=== PATIENT | female | born 1955 | race Caucasian/White ===

== ENCOUNTER 2022-06-21 13:39 | Observation (INO) ==
[2022-06-21] MEDS ORDERED: SOLU-Medrol 125 MG VIAL ONE ×2 (13:57→18:53)
[2022-06-21] MEDS ORDERED: BENADRYL INJ 50 MG VIAL ONE ×2 (13:58→18:54)
[2022-06-21] MEDS ORDERED: NS 1,000 ML IV 1,000 ML ONE ×2 (13:58→18:54)
[2022-06-21] MEDS ORDERED: BENADRYL INJ 50 MG VIAL IVP ONE (14:13)
[2022-06-21] MEDS ORDERED: SOLU-Medrol 125 MG VIAL IVP ONE (14:13)
[2022-06-21] MEDS: NS 1,000 ML IV 1,000 ML IV ONE ×2 (14:15→18:59)
--- NOTE | 2022-06-21 14:18 | DR.DIZZY ---
HPI Time seen Time Seen by Provider: 06/21/22 14:18 COVID-19 Coronavirus risk:travel/contact w/high risk person: No Has patient experienced Coronavirus symptoms: No PMH Travel Risk Coronavirus risk:travel/contact w/high risk person: No Has patient experienced Coronavirus symptoms: No PE Vital Signs Vitals: Temperature 97.7 F Pulse Rate 85 Respiratory Rate 20 Blood Pressure 125/60 O2 Sat by Pulse Oximetry 96 ROR Labs Reviewed Result Diagrams: 06/23/22 06:03 06/23/22 06:03 Laboratory: 06/21/22 15:14 Urine,Clean Catch Urine Culture - Final Enterobacter Aerogenes Escherichia Coli WBC 11.1 X10^3/uL (3.6-10.0) H 06/21/22 14:00 RBC 4.73 X10^6/uL (3.5-5.4) 06/21/22 14:00 Hgb 13.1 g/dL (12.0-16.0) 06/21/22 14:00 Hct 39.6 % (36.0-47.0) 06/21/22 14:00 MCV 83.7 fL (80.0-100.0) 06/21/22 14:00 MCH 27.7 pg (27.0-34.0) 06/21/22 14:00 MCHC 33.1 g/dL (33.0-35.0) 06/21/22 14:00 RDW 15.3 % (11.6-16.5) 06/21/22 14:00 Plt Count 345 X10^3/uL (150.0-450.0) 06/21/22 14:00 MPV 8.5 fL (7.4-11.0) 06/21/22 14:00 Neut % (Auto) 68.2 % (42.0-75.0) 06/21/22 14:00 Lymph % (Auto) 23.4 % (21.0-51.0) 06/21/22 14:00 Mckinley % (Auto) 6.4 % (0.0-13.0) 06/21/22 14:00 Eos % (Auto) 1.5 % (0.9-2.9) 06/21/22 14:00 Baso % (Auto) 0.5 % (0.2-1.0) 06/21/22 14:00 Neut # (Auto) 7.6 x10^3/uL (2.2-4.8) H 06/21/22 14:00 Lymph # (Auto) 2.6 X10^3/uL (1.3-2.9) 06/21/22 14:00 Mckinley # (Auto) 0.7 x10^3/uL (0.3-0.8) 06/21/22 14:00 Eos # (Auto) 0.2 x10^3/uL (0.0-0.2) 06/21/22 14:00 Baso # (Auto) 0.1 X10^3/uL (0.0-0.1) 06/21/22 14:00 Absolute Nucleated RBC 0.2 /100WBC 06/21/22 14:00 Sodium 138 mmol/L (136-145) 06/21/22 14:00 Corrected Sodium TNP 06/21/22 14:00 Potassium 5.8 mmol/L (3.5-5.1) H 06/21/22 14:00 Chloride 105 mmol/L (98-107) 06/21/22 14:00 Carbon Dioxide 23.2 mmol/L (21-32) 06/21/22 14:00 BUN 19 mg/dL (7-18) H 06/21/22 14:00 Creatinine 1.02 mg/dL (0.55-1.02) 06/21/22 14:00 Est GFR (MDRD) Af Amer > 60 (>60) 06/21/22 14:00 Est GFR (MDRD) Non-Af 58 (>60) L 06/21/22 14:00 Glucose 58 mg/dL (65-99) L 06/21/22 14:00 Calcium 8.8 mg/dL (8.5-10.1) 06/21/22 14:00 Corrected Calcium TNP 06/21/22 14:00 Total Bilirubin 0.10 mg/dL (0.2-1.0) L 06/21/22 14:00 AST 16 Units/L (15-37) 06/21/22 14:00 ALT 16 Units/L (12-78) 06/21/22 14:00 Alkaline Phosphatase 102 Units/L (46-116) 06/21/22 14:00 Total Protein 7.0 g/dL (6.4-8.2) 06/21/22 14:00 Albumin 3.4 g/dL (3.4-5.0) 06/21/22 14:00 Globulin 3.6 g/dL (2.5-4.5) 06/21/22 14:00 Albumin/Globulin Ratio 0.9 Ratio (1.1-2.1) L 06/21/22 14:00 Specimen Type Clean catch urine 06/21/22 15:14 Urine Color Yellow (YELLOW) 06/21/22 15:14 Urine Appearance Cloudy (CLEAR) 06/21/22 15:14 Urine pH 6.0 (5.0 - 8.0) 06/21/22 15:14 Ur Specific [place] 1.020 (1.000-1.030) 06/21/22 15:14 Urine Protein 1+ (NEGATIVE) 06/21/22 15:14 Urine Glucose (UA) Negative (NEGATIVE) 06/21/22 15:14 Urine Ketones Negative (NEGATIVE) 06/21/22 15:14 Urine Blood 1+ (NEGATIVE) 06/21/22 15:14 Urine Nitrite Positive (NEGATIVE) 06/21/22 15:14 Urine Bilirubin Negative (NEGATIVE) 06/21/22 15:14 Urine Urobilinogen Normal (NORMAL) 06/21/22 15:14 Ur Leukocyte Esterase 3+ (NEGATIVE) 06/21/22 15:14 Urine RBC 20-30 /HPF (0-3) A 06/21/22 15:14 Urine WBC Tntc /HPF (0-5) A 06/21/22 15:14 Ur Squamous Epith Cells Few /HPF (NEGATIVE) 06/21/22 15:14 Urine Bacteria 2+ /HPF (NEGATIVE) 06/21/22 15:14 Ur Culture Indicated? Yes/culture set up 06/21/22 15:14 Opioid Opioid Risk Tool Age (Sj box if 16-45): No History of Preadolescent Sexual Abuse: No Total: 0 Total Score Risk Category: Low Risk Copyright: Simone MENDOZA predicting aberrant behaviors Discharge Plan Discharge Plan Patient Disposition: HOME, SELF-CARE Condition: Stable Orders to Discharge Patient Discharge Orders: Discharge (Routine); Ordered 06/23/22 Ordered By: Otf Verduzco
[2022-06-21 14:29] LABS: BASOPHILS # (AUTO) 0.1 X10^3/uL (0.0-0.1); BASOPHILS % (AUTO) 0.5 % (0.2-1.0); EOSINOPHILS # (AUTO) 0.2 x10^3/uL (0.0-0.2); EOSINOPHILS % (AUTO) 1.5 % (0.9-2.9); HEMATOCRIT 39.6 % (36.0-47.0); HEMOGLOBIN 13.1 g/dL (12.0-16.0); LYMPHOCYTES # (AUTO) 2.6 X10^3/uL (1.3-2.9); LYMPHOCYTES % (AUTO) 23.4 % (21.0-51.0); MEAN CORPUSCULAR HEMOGLOBIN 27.7 pg (27.0-34.0); MEAN CORPUSCULAR HGB CONC 33.1 g/dL (33.0-35.0); MEAN CORPUSCULAR VOLUME 83.7 fL (80.0-100.0); MEAN PLATELET VOLUME 8.5 fL (7.4-11.0); MONOCYTES # (AUTO) 0.7 x10^3/uL (0.3-0.8); MONOCYTES % (AUTO) 6.4 % (0.0-13.0); NEUTROPHILS # (AUTO) 7.6 x10^3/uL (2.2-4.8); NEUTROPHILS % (AUTO) 68.2 % (42.0-75.0); RED BLOOD COUNT 4.73 X10^6/uL (3.5-5.4); RED CELL DISTRIBUTION WIDTH 15.3 % (11.6-16.5); WHITE BLOOD COUNT 11.1 X10^3/uL (3.6-10.0)
[2022-06-21 14:35] LABS: BLOOD UREA NITROGEN 19 mg/dL (7-18); CHLORIDE 105 mmol/L (98-107); SODIUM 138 mmol/L (136-145)
[2022-06-21 15:11] LABS: ALANINE AMINOTRANSFERASE 16 Units/L (12-78); ALBUMIN 3.4 g/dL (3.4-5.0); ALKALINE PHOSPHATASE 102 Units/L (46-116); ASPARTATE AMINO TRANSFERASE 16 Units/L (15-37); CALCIUM 8.8 mg/dL (8.5-10.1); CARBON DIOXIDE 23.2 mmol/L (21-32); CREATININE 1.02 mg/dL (0.55-1.02); eGFR NON BLACK RACES 58 (>60)
[2022-06-21 15:28] LABS: BILIRUBIN,URINE NEGATIVE (NEGATIVE); BLOOD/HEMOGLOBIN,URINE 1+ (NEGATIVE); GLUCOSE, URINE NEGATIVE (NEGATIVE); KETONES,URINE NEGATIVE (NEGATIVE); LEUKOCYTE ESTERASE ,URINE 3+ (NEGATIVE); NITRITES,URINE POSITIVE (NEGATIVE); PROTEIN,URINE 1+ (NEGATIVE); UROBILINOGEN,URINE NORMAL (NORMAL)
[2022-06-21 15:36] LABS: APPEARANCE,URINE CLOUDY (CLEAR); COLOR,URINE YELLOW (YELLOW)
[2022-06-21 15:37] LABS: BACTERIA,URINE 2+ /HPF (NEGATIVE); RBC,URINE 20-30 /HPF (0-3); SQUAMOUS EPITHELIAL CELL,UR FEW /HPF (NEGATIVE)
[2022-06-21] MEDS ORDERED: ZOFRAN INJ 4 MG VIAL IVP ONE (15:42)
[2022-06-21] MEDS ORDERED: ZOFRAN INJ 4 MG VIAL ONE (15:44)
--- NOTE | 2022-06-21 16:25 | CT ---
HISTORYWeakness and dizzinessSTUDYCT brain without contrastCOMPARISONNoneTECHNIQUEMultiple axial images of the brain were obtained from the skull base to the vertex [without] administration of IV contrast.Dose reduction techniques including Automated Exposure Control (AEC) and adjustment of mA and kV were utlized.FINDINGS[No acute intraparenchymal hemorrhage or mass can be identified.] [No extra-axial fluid collections are seen.] [There is a small low-attenuation area in the right basal ganglia which is age indeterminate and could represent a subacute infarct. This would be better evaluated with MRI. Mild periventricular small vessel ischemic changes are noted.] [The ventricular system is symmetric and nondilated.] [The extracranial structures are grossly unremarkable.]IMPRESSIONSmall age indeterminate focus in the right basal ganglia as above. This could represent a subacute infarct and correlation with MRI would be of benefitElectronically signed by: DONTE YANEZ (Jun 21, 2022 16:24:03)
[2022-06-21] MEDS ORDERED: ROCEPHIN VIAL 1 GRAM ONE (19:51)
[2022-06-21] MEDS ORDERED: ROCEPHIN VIAL 1 GRAM 1 G in NS 100 ML IV 100 ML IV ONE (19:54)
--- NOTE | 2022-06-21 20:31 | EKG ---
Test Reason : DIZZINESS Blood Pressure : */* mmHG Vent. Rate : 86 BPM Atrial Rate : 86 BPM P-R Int : 198 ms QRS Dur : 98 ms QT Int : 382 ms P-R-T Axes : 79 55 36 degrees QTc Int : 457 ms Normal sinus rhythm Low voltage QRS Borderline ECG No previous ECGs available Confirmed by Dillan Franz ([id number]) on 06/23/2022 8:27:29 AM Referred By: Confirmed By: Dillan Franz
[2022-06-21 21:36] VITALS: BMI 31.5
[2022-06-21] MEDS: NS 1,000 ML IV 1,000 ML IV SCH (22:04)
[2022-06-22] MEDS: AMBIEN PO SCH ×2 (00:27→22:30)
[2022-06-22] MEDS: DESYREL PO SCH ×2 (00:27→21:55)
[2022-06-22] MEDS: ELAVIL PO SCH ×2 (00:27→21:50)
[2022-06-22] MEDS: LIPITOR TAB 80 MG PO SCH ×2 (00:27→22:29)
[2022-06-22] MEDS: SUBOXONE TAB SL SCH ×4 (00:41→22:33)
[2022-06-22 02:23] LABS: BASOPHILS # (AUTO) 0.1 X10^3/uL (0.0-0.1); BASOPHILS % (AUTO) 0.4 % (0.2-1.0); HEMATOCRIT 37.7 % (36.0-47.0); HEMOGLOBIN 12.3 g/dL (12.0-16.0); LYMPHOCYTES # (AUTO) 1.2 X10^3/uL (1.3-2.9); LYMPHOCYTES % (AUTO) 9.8 % (21.0-51.0); MEAN CORPUSCULAR HEMOGLOBIN 27.2 pg (27.0-34.0); MEAN CORPUSCULAR HGB CONC 32.8 g/dL (33.0-35.0); MEAN CORPUSCULAR VOLUME 82.9 fL (80.0-100.0); MEAN PLATELET VOLUME 8.7 fL (7.4-11.0); MONOCYTES # (AUTO) 0.1 x10^3/uL (0.3-0.8); MONOCYTES % (AUTO) 0.7 % (0.0-13.0); NEUTROPHILS # (AUTO) 11.2 x10^3/uL (2.2-4.8); NEUTROPHILS % (AUTO) 89.1 % (42.0-75.0); RED BLOOD COUNT 4.54 X10^6/uL (3.5-5.4); RED CELL DISTRIBUTION WIDTH 14.7 % (11.6-16.5); WHITE BLOOD COUNT 12.6 X10^3/uL (3.6-10.0)
[2022-06-22 02:28] LABS: INR 1.15 (0.8-1.3)
[2022-06-22 02:32] LABS: ALANINE AMINOTRANSFERASE 15 Units/L (12-78); ALBUMIN 2.9 g/dL (3.4-5.0); ALKALINE PHOSPHATASE 96 Units/L (46-116); ASPARTATE AMINO TRANSFERASE 13 Units/L (15-37); BLOOD UREA NITROGEN 17 mg/dL (7-18); CARBON DIOXIDE 23.3 mmol/L (21-32); CHLORIDE 106 mmol/L (98-107); COR CA(FOR HYPOALB) 8.9 mg/dL (8.5-10.1); COR NA(FOR HYPERGLY) 142 mmol/L (136-145); CREATININE 0.85 mg/dL (0.55-1.02); MAGNESIUM 1.1 mg/dL (2.0-2.9); SODIUM 136 mmol/L (136-145); eGFR NON BLACK RACES > 60 (>60)
[2022-06-22] MEDS ORDERED: K-DUR TAB 20 MEQ PO PRN (07:08)
[2022-06-22] MEDS ORDERED: GLUCOPHAGE ONE ×2 (08:13→20:25)
[2022-06-22] MEDS: GLUCOPHAGE PO SCH ×2 (08:57→22:39)
[2022-06-22] MEDS: WELLBUTRIN SR 150 MG (BID) PO SCH ×2 (08:57→22:39)
[2022-06-22] MEDS: NORVASC TAB 5 MG PO SCH (08:57)
[2022-06-22] MEDS: CYMBALTA PO SCH ×2 (08:57→22:29)
[2022-06-22] MEDS: PLAVIX PO SCH (08:57)
[2022-06-22] MEDS: DIOVAN TAB 160 MG PO SCH (08:57)
[2022-06-22] MEDS: ALDACTONE TAB 25 MG PO SCH (08:58)
[2022-06-22] MEDS: DITROPAN TAB 5 MG PO SCH ×2 (08:58→22:26)
[2022-06-22] MEDS: AMARYL TAB 4 MG PO SCH (08:58)
[2022-06-22] MEDS: ROCEPHIN VIAL 1 GRAM 1 G in NS 100 ML IV 100 ML IV SCH (09:00)
[2022-06-22] MEDS ORDERED: AMLODIPINE VALSARTAN PO SCH (09:00)
[2022-06-22] MEDS: LOVENOX INJ 40 MG SYR SC SCH (09:51)
[2022-06-22] MEDS: ZyPREXA TAB 5 MG PO SCH (09:52)
[2022-06-22] MEDS: MAGNESIUM SULFATE 1 GRAM/100 mL PREMIX 1 G/100 ML BAG IV PRN ×5 (09:52→22:25)
[2022-06-22] MEDS: TYLENOL 325 MG TAB PO PRN (10:52)
[2022-06-22 11:24] LABS: FREE T4 (FREE THYROXINE) 0.88 ng/dL (0.76-1.46); TSH (3RD GENERATION) 0.552 uIU/mL (0.358-3.74)
--- NOTE | 2022-06-22 14:12 | MRI ---
HISTORYweakness, falls, hx cvaSTUDYBRAIN W/O CONCOMPARISONHead CT dated 06/21/2022TECHNIQUEMultiplanar multi-sequence MRI of the brain was obtained utilizing standard departmental protocol. Sagittal and axial T1 weighted images were obtained. Axial T2 and flair weighted images were performed as well. Axial diffusion weighted and ADC trace mapping was performed.FINDINGSThe ventricles are normal in size and symmetric, no evidence of an acute infarct, no focal areas of restricted diffusion.No sellar masses with a empty sella, the cervicocranial junction is unremarkable, no nasopharyngeal masses.The main arterial and venous flow voids are present, no intra or extra-axial fluid collections, no orbital masses.FLAIR images demonstrate minimal periventricular white matter changes. There is symmetry of the cavernous sinus. No abnormal intraparenchymal susceptibility artifact. No abnormal signal in the mastoid cells.IMPRESSIONNo acute intracranial abnormalities. Mild periventricular white matter changes likely microvascular ischemic disease. Tiny mucous retention cyst in the right maxillary sinusElectronically signed by: Ranjana Shearer (Jun 22, 2022 14:11:35)
--- NOTE | 2022-06-22 16:25 | RAD ---
Right hand three viewsIndication: Pain after fallFINDINGSThere is minimal thumb base DJD. Irregularity of the distal radius suggests sequela of old fracture with radiocarpal DJD and possibly old ulnar fracture noted, healed.IMPRESSION:1. Mild degenerative change without acute fracture of the hand.2. Old radius and ulnar fractures likely. Correlate for pain here.Electronically signed by: LINDA NEAL (Jun 22, 2022 16:23:47)
[2022-06-22] MEDS ORDERED: SNACK - Diabetic Appropriate PO SCH (20:00)
[2022-06-22] MEDS: NS 1,000 ML IV 1,000 ML IV SCH ×2 (22:34→23:59)
[2022-06-23] MEDS: MAGNESIUM SULFATE 1 GRAM/100 mL PREMIX 1 G/100 ML BAG IV PRN (01:40)
[2022-06-23 06:19] LABS: BASOPHILS % (AUTO) 0.3 % (0.2-1.0); EOSINOPHILS # (AUTO) 0.1 x10^3/uL (0.0-0.2); HEMATOCRIT 37.8 % (36.0-47.0); HEMOGLOBIN 12.5 g/dL (12.0-16.0); LYMPHOCYTES # (AUTO) 3.1 X10^3/uL (1.3-2.9); LYMPHOCYTES % (AUTO) 25.9 % (21.0-51.0); MEAN CORPUSCULAR HEMOGLOBIN 27.3 pg (27.0-34.0); MEAN CORPUSCULAR VOLUME 82.7 fL (80.0-100.0); MEAN PLATELET VOLUME 8.4 fL (7.4-11.0); MONOCYTES # (AUTO) 0.6 x10^3/uL (0.3-0.8); MONOCYTES % (AUTO) 4.9 % (0.0-13.0); NEUTROPHILS # (AUTO) 8.2 x10^3/uL (2.2-4.8); NEUTROPHILS % (AUTO) 67.9 % (42.0-75.0); RED BLOOD COUNT 4.57 X10^6/uL (3.5-5.4); RED CELL DISTRIBUTION WIDTH 14.9 % (11.6-16.5)
[2022-06-23 06:30] LABS: ALANINE AMINOTRANSFERASE 18 Units/L (12-78); ALBUMIN 3.2 g/dL (3.4-5.0); ALKALINE PHOSPHATASE 102 Units/L (46-116); ASPARTATE AMINO TRANSFERASE 14 Units/L (15-37); BLOOD UREA NITROGEN 13 mg/dL (7-18); CALCIUM 8.3 mg/dL (8.5-10.1); CARBON DIOXIDE 26.5 mmol/L (21-32); CHLORIDE 106 mmol/L (98-107); COR CA(FOR HYPOALB) 8.9 mg/dL (8.5-10.1); COR NA(FOR HYPERGLY) 141 mmol/L (136-145); CREATININE 0.78 mg/dL (0.55-1.02); SODIUM 140 mmol/L (136-145); TOTAL PROTEIN 6.4 g/dL (6.4-8.2); eGFR NON BLACK RACES > 60 (>60)
[2022-06-23] MEDS ORDERED: GLUCOPHAGE ONE (08:33)
[2022-06-23] MEDS: DITROPAN TAB 5 MG PO SCH (08:40)
[2022-06-23] MEDS: GLUCOPHAGE PO SCH (08:40)
[2022-06-23] MEDS: AMARYL TAB 4 MG PO SCH (08:40)
[2022-06-23] MEDS: NORVASC TAB 5 MG PO SCH (08:40)
[2022-06-23] MEDS: DIOVAN TAB 160 MG PO SCH (08:41)
[2022-06-23] MEDS: ZyPREXA TAB 5 MG PO SCH (08:41)
[2022-06-23] MEDS: WELLBUTRIN SR 150 MG (BID) PO SCH (08:42)
[2022-06-23] MEDS: CYMBALTA PO SCH (08:42)
[2022-06-23] MEDS: PLAVIX PO SCH (08:43)
[2022-06-23] MEDS: ALDACTONE TAB 25 MG PO SCH (08:43)
[2022-06-23] MEDS: TYLENOL 325 MG TAB PO PRN (08:44)
[2022-06-23] MEDS: LOVENOX INJ 40 MG SYR SC SCH (08:45)
[2022-06-23] MEDS: ROCEPHIN VIAL 1 GRAM 1 G in NS 100 ML IV 100 ML IV SCH (08:46)
[2022-06-23] MEDS: SUBOXONE TAB SL SCH ×2 (09:01→12:57)
--- NOTE | 2022-06-23 11:56 | DR.H&P ---
H&P - History & Physical for Day of: H&P Date: 06/21/22 - Chief Complaint Chief Complaint: DIZZINESS, NAUSEA, WEAKNESS - History of Present Illness History of Present Illness: IS A 67 YEAR OLD PATIENT OF [employer]. SHE PRESENTED TO THE ER WITH COMPLAINTS OF DIZZINESS, NAUSEA, AND WEAKNESS TO UPPER AND LOWER EXTREMITIES. PATIENT REPORTS FEELINGS OF NUMBNESS TO EXTREMITIES. SHE REPORTS THAT SYMPTOMS STARTED 4-5 MONTHS AGO, BUT HAVE PROGRESSIVELY GOTTEN WORSE. SHE ADMITS TO FALLING AT HOME THE DAY PRIOR TO ARRIVAL. HER PMH INCLUDES DM II, HTN, CVA, DEPRESSION, ANXIETY, OPIOID DEPENDENCE, APPENDECTOMY, CHOLECYSTECTOMY, AND HYSTERECTOMY. PATIENT REPORTS THAT HER CVA WAS IN AUGUST OF 2021. SHE IS A CURRENT EVERY DAY SMOKER. SHE ADMITS TO SMOKING ABOUT A PACK OF CIGARETTES PER DAY. UPON EXAMINATION, PATIENT IS ABLE TO AMBULATE, BUT IS NOTED TO HAVE AN UNSTEADY GAIT. ON ARRIVAL TO THE ER, HER VITALS WERE: 97.7-18-83-95%-122/56. LABS WERE OBTAINED. WBC 11.1, RBC 4.73, HGB 13.1, HCT 39.6, PLT COUNT 345, SODIUM 138, POTASSIUM 5.8, CHLORIDE 105, BUN 19, CREATININE 1.02, GLUCOSE 58, CALCIUM 8.8, TOTAL BILI 0.10, AST 16, ALT 16, ALK PHOS 102, TOTAL PROTEIN 7.0, ALBUMIN 3.4, GLOBULIN 3.6, CREATININE 38, TROPONIN 5.7. A URINALYSIS WAS OBTAINED AND REVEALED: WBC TNTC, RBC 20-30, LEUKOCYTES 3+, BACTERIA 2+, NITIRITES POSITIVE. URINE CULTURE WAS SET UP. A BRAIN CT WAS OBTAINED AND REVEALED: Small age indeterminate focus in the right basal ganglia as above. This could represent a subacute infarct and correlation with MRI would be of benefit. EKG WAS OBTAINED AND REVEALED: NORMAL SINUS RHYTHM WITH HR 86. IN THE ER, SHE WAS GIVEN A NORMAL SALINE BOLUS, SOLU-MEDROL 125MG IV X 1, ZOFRAN 4MG IV X 1, ROCEPHIN 1G IV X 1. SHE WAS ADMITTED TO THE HOSPITAL OBSERVATION STATUS FOR TREATMENT OF UTI, GENERALIZED WEAKNESS, SUSPECTED ACUTE CVA, AND HYPERKALEMIA. WE WILL START NORMAL SALINE AT 50 ML/HR, LOVENOX 40MG SC DAILY, ROCEPHIN 1G IV DAILY, OTBS ACHS, HUMULIN R SLIDING SCALE, AND WILL RESUME HER HOME MEDICATIONS. HOME MEDS INCLUDE: ELAVIL, NORVASC, LIPITOR, SUBOXONE, WELLBUTRIN, PLAVIX, CYMBALTA, AMARYL, GLUCOPHAGE, ZYPREXA, DITROPAN, K-DUR, ALDACTONE, DESYREL, DIOVAN, AND AMBIEN. WE WILL OBTAIN A BRAIN MRI AND HAVE PHYS ICAL THERAPY EVALUATE PATIENT. OTHERWISE, WE WILL FOLLOW-UP WITH AM LABS AND CONTINUE TO MONITOR. TIME SPENT ON CLINICAL ASSESSMENT, REVIWING LABS AND IMAGING, DECISION MAKING, AND DOCUMENTATION GREATER THAN 75 MINUTES. - Past Medical History Past Medical History: Anxiety, CVA, Depression, Diabetes, Hypertension Additional Medical History: MOOD DISORDER, OPIOID DEPNENCENCE - Past Surgical History Surgical History: Appendectomy, Cholecystectomy, Hysterectomy - Family History Family Medical History: Diabetes Mellitus, PR - Social History Does patient currently use any type of tobacco product: Yes Have you used tobacco products in the last 12 months: Yes Type of Tobacco Use: Cigarettes How many years tobacco product used: 25 Does any household member use tobacco: Yes Alcohol Use: None Drug Use: None - Medications Home Medications: No Known Allergies Allergy (Verified 06/21/22 14:38) CONTINUE taking the following medications amitriptyline 75 mg tablet 2 tab PO QPM 06/21/22 [History] amlodipine 5 mg-valsartan 320 mg tablet 1 tab PO QDAY 06/21/22 [History] atorvastatin 80 mg tablet 1 tab PO QPM 06/21/22 [History] buprenorphine 8 mg-naloxone 2 mg sublingual tablet 1 tab sublingual QID 06/21/22 [History] bupropion HCl 150 mg tablet,12 hr sustained-release 1 tab PO BID 06/21/22 [History] clopidogrel 75 mg tablet 1 tab PO QDAY 06/21/22 [History] duloxetine 60 mg capsule,delayed release 1 cap PO BID 06/21/22 [History] glimepiride 4 mg tablet 1 tab PO QDAY 06/21/22 [History] metformin 1,000 mg tablet 1 tab PO BID 06/21/22 [History] olanzapine 15 mg tablet 1 tab PO QDAY 06/21/22 [History] oxybutynin chloride 5 mg tablet 1 tab PO BID 06/21/22 [History] semaglutide 1 mg/dose (4 mg/3 mL) subcutaneous pen injector (Ozempic) 1 ea subcut WEEKLY 06/21/22 [History] spironolactone 50 mg tablet 1 tab PO QDAY 06/21/22 [History] trazodone 100 mg tablet 1 tab PO QPM insomnia 06/21/22 [History] zolpidem 5 mg tablet 1 tab PO QPM 06/21/22 [History] New Prescriptions ciprofloxacin HCl 500 mg tablet (Cipro) 500 mg PO BID #20 tabs 06/23/22 [Rx] - Review of Systems Constitutional: Weakness Eyes: No Symptoms Reported ENT: No Symptoms Reported Respiratory: No Symptoms Reported Cardiovascular: No Symptoms Reported Gastrointestinal: Nausea Genitourinary: No Symptoms Reported Musculoskeletal: No Symptoms Reported Skin: No Symptoms Reported Neurological: Weakness - Physical Exam Vital Signs: Temperature 97.9 F Pulse Rate [Brachial] 87 Pulse Rate 85 Respiratory Rate 16 Blood Pressure [Left Arm] 121/63 Blood Pressure [Right Arm] 138/96 Blood Pressure 125/60 O2 Sat by Pulse Oximetry 98 Oriented: Normal Eyes: Normal Ear: Normal Nose: Normal Throat: Normal Respiratory: Clear Throughout Cardiovascular: Normal : Normal Auscultation: Bowel Sounds: Normal Palpation: Normal Tenderness: Normal Skin: Normal Musculoskeletal: Normal Psychiatric: Normal Mood Description: Calm Affect: Normal Speech Pattern: Clear - Assessment/Plan (1) Urinary tract infection Qualifiers: Urinary tract infection type: acute cystitis Hematuria presence: with hematuria Qualified Code(s): N30.01 - Acute cystitis with hematuria Status: Acute Plan: ADMIT, NORMAL SALINE AT 50 ML/HR, LOVENOX 40MG SC DAILY, ROCEPHIN 1G IV DAILY, OTBS ACHS, HUMULIN R SLIDING SCALE, AND WILL RESUME HER HOME MEDICATIONS. PT/OT. OBTAIN BRAIN MRI WITHOUT CONTRAST (2) Generalized weakness Status: Acute (3) Hyperkalemia Status: Acute (4) History of CVA (cerebrovascular accident) Status: Chronic (5) HTN (hypertension) Qualifiers: Hypertension type: primary hypertension Qualified Code(s): I10 - Essential (primary) hypertension Status: Chronic (6) DM II (diabetes mellitus, type II), controlled Qualifiers: Diabetes mellitus nursing home insulin use: with local intermodal truck driver use Diabetes mellitus complication status: with hyperglycemia Qualified Code(s): E11.65 - Type 2 diabetes mellitus with hyperglycemia; Z79.4 - USP (current) use of insulin Status: Chronic (7) Depression Qualifiers: Depression Type: major depressive disorder Major depression recurrence: recurrent Active/Remission status: remission status unspecified Qualified Code(s): F33.9 - Major depressive disorder, recurrent, unspecified Status: Chronic (8) Anxiety Status: Chronic - Allergies Allergies/Adverse Reactions: Allergies Allergy/AdvReac Type Severity Reaction Status Date / Time No Known Allergies Allergy Verified 06/21/22 14:38
[2022-06-23 12:09] VITALS: BP 118/62
[2022-06-23] MEDS: NS 1,000 ML IV 1,000 ML IV SCH (12:57)
[2022-06-28] MEDS ORDERED: PATIENT'S HOME MEDICATION (Semaglutide [Ozempic] 1 mg/dose (4 mg/3 mL) pen injector) SUBCUT SCH (09:00)
== END 2022-06-23 14:37 | disposition home or self-care (01) ==
LOC: ER 13:39 → MED/SURG 13:39
PROVIDERS: ADMIT Internal Medicine; ATTEND Internal Medicine
DX: Z91.81 History of falling; R26.81 Unsteadiness on feet; M79.641 Pain in right hand; Y92.230 Patient room in hospital as the place of occurrence of the external cause; W18.39XA Other fall on same level, initial encounter; E11.65 Type 2 diabetes mellitus with hyperglycemia; F33.9 Major depressive disorder, recurrent, unspecified; R20.0 Anesthesia of skin; Z86.73 Personal history of transient ischemic attack (TIA), and cerebral infarction without residual deficits; Z79.4 Long term (current) use of insulin; N30.01 Acute cystitis with hematuria; B96.89 Other specified bacterial agents as the cause of diseases classified elsewhere; E87.5 Hyperkalemia; B96.29 Other Escherichia coli [E. coli] as the cause of diseases classified elsewhere; R53.1 Weakness; I10 Essential (primary) hypertension; R42 Dizziness and giddiness; Z72.0 Tobacco use; F41.8 Other specified anxiety disorders

== ENCOUNTER 2023-02-06 14:40 | Observation (INO) ==
[2023-02-06 14:49] VITALS: BMI 25.4
--- NOTE | 2023-02-06 15:06 | EKG ---
Test Reason : Chest pain Blood Pressure : */* mmHG Vent. Rate : 75 BPM Atrial Rate : 75 BPM P-R Int : 144 ms QRS Dur : 80 ms QT Int : 408 ms P-R-T Axes : 80 68 67 degrees QTc Int : 455 ms Normal sinus rhythm Normal ECG When compared with ECG of 21-JUN-2022 20:29, QRS duration has decreased Confirmed by Dillan Franz ([id number]) on 02/08/2023 7:29:27 AM Referred By: Confirmed By: Dillan Franz
[2023-02-06] MEDS ORDERED: APRESOLINE INJ 20 MG VIAL IVP ONE ×2 (15:11→20:22)
--- NOTE | 2023-02-06 15:13 | DR.GENAD ---
HPI Time Seen Time Seen by Provider: 02/06/23 15:10 PCP Primary Care Physician: EMERALD BEATTY Complaint/Symptoms Chief Complaint Doctors Comments: HEADACHE WITH LEFT SIDE CHEST PAIN AND INCREASED LEFT SIDE WEAKNESS OVER PAST 3 DAYS. PRESENTED WITH ELEVATED BP BUT DID NOT TAKE AM MEDS TODAY. Chief Complaint:: Pt states for the past 2-3 days shes been weak, and having headaches with weakness more on the left side. Also chest has been hurting. Self Treatment fo Chief Complaint: N/A COVID-19 Coronavirus risk:travel/contact w/high risk person: No Has patient experienced Coronavirus symptoms: No Source History Provided: Patient Mode of Arrival Mode of Arrival: Ambulatory Timing Onset of Chief Complaint: 02/04/23 PMH PMH Past Medical History: Yes Past Medical History: CVA, Diabetes and Hypertension Past Medical History Comment: HEART ATTACK, STROKE 2021 Past Surgical History: Yes Surgical History: Appendectomy and Hysterectomy Past Surgical History Comment: GALLBLADDER Family History History of Family Medical Conditions: Yes Family Medical History: Diabetes Mellitus and Hypertension Social History Does patient currently use any type of tobacco product: Yes Have you used tobacco products in the last 12 months: Yes Type of Tobacco Use: Cigarettes How many years tobacco product used: 20 Does any household member use tobacco: No Alcohol Use: None Do you use any recreational Drugs:: No Lives With: Spouse Lives Where: Home Travel Risk Coronavirus risk:travel/contact w/high risk person: No Has patient experienced Coronavirus symptoms: No Infectious screening Have you traveled outside the country in the last 6 months?: No Isolation: Standard ROS Review of Systems Constitutional: Other (LEDT CHEST AND NECK PAIN ,HEADACHE) Eyes: No Symptoms Reported ENTM: No Symptoms Reported Respiratoy: negative No Symptoms Reported, See HPI, Productive Cough, Non- Productive Cough, Moist Cough, Dry Cough, Hacking Cough, Barking Cough, Brassy Cough, Orthopnea, Short of Breath, Stridor, Wheezing, Hemoptysis or Other Cardiovascular: Chest Pain Gastrointestinal/Abdominal: No Symptoms Reported Genitourinary: No Symptoms Reported Neurological: No Symptoms Reported Musculoskeletal: No Symptoms Reported Integumentary: No Symptoms Reported Hematologic/Lymphatic: No Symptoms Reported Endocrine: No Symptoms Reported Psychiatric: No Symptoms Reported PE Vital Signs Vitals: Vital Signs Pulse Rate 92 Pulse Rate 90 Pulse Rate 81 Pulse Rate 79 Pulse Rate 82 Pulse Rate 79 Pulse Rate 82 Pulse Rate 79 Pulse Rate 79 Pulse Rate 81 Pulse Rate 81 Pulse Rate 83 Pulse Rate 80 Pulse Rate 80 Pulse Rate 79 Pulse Rate 79 Pulse Rate 79 Pulse Rate 81 Pulse Rate 90 Pulse Rate 79 Pulse Rate 79 Pulse Rate 82 Pulse Rate 80 Pulse Rate 80 Pulse Rate 82 Pulse Rate 79 Pulse Rate 90 Pulse Rate 78 Pulse Rate 82 Pulse Rate 85 Pulse Rate 75 Pulse Rate 74 Pulse Rate 81 Pulse Rate 74 Pulse Rate 75 Pulse Rate 78 Pulse Rate 73 Pulse Rate 72 Pulse Rate 75 Pulse Rate 75 Pulse Rate 73 Respiratory Rate 14 Respiratory Rate 17 Respiratory Rate 13 Respiratory Rate 13 Respiratory Rate 12 Respiratory Rate 15 Respiratory Rate 15 Respiratory Rate 13 Respiratory Rate 17 Respiratory Rate 20 Respiratory Rate 23 Respiratory Rate 16 Respiratory Rate 37 Respiratory Rate 17 Respiratory Rate 15 Respiratory Rate 21 Respiratory Rate 15 Respiratory Rate 8 Respiratory Rate 14 Respiratory Rate 21 Respiratory Rate 17 Respiratory Rate 20 Respiratory Rate 24 Respiratory Rate 22 Respiratory Rate 20 Respiratory Rate 18 Respiratory Rate 22 Respiratory Rate 8 Respiratory Rate 20 Respiratory Rate 9 Respiratory Rate 10 Respiratory Rate 22 Respiratory Rate 18 Respiratory Rate 20 Respiratory Rate 9 Respiratory Rate 12 Respiratory Rate 9 Respiratory Rate 16 Respiratory Rate 17 Respiratory Rate 18 Respiratory Rate 10 Respiratory Rate 18 Respiratory Rate 24 Respiratory Rate 25 Blood Pressure 154/73 Blood Pressure 143/67 Blood Pressure 142/64 Blood Pressure 152/71 Blood Pressure 139/64 Blood Pressure 151/69 Blood Pressure 144/59 Blood Pressure 144/59 Blood Pressure 144/59 Blood Pressure 162/72 Blood Pressure 162/72 Blood Pressure 162/72 Blood Pressure 174/74 Blood Pressure 209/94 Blood Pressure 173/64 Blood Pressure 197/88 Blood Pressure 186/81 Blood Pressure 214/86 Blood Pressure 174/76 Blood Pressure 161/70 Blood Pressure 160/70 Blood Pressure 166/74 O2 Sat by Pulse Oximetry 99 O2 Sat by Pulse Oximetry 98 O2 Sat by Pulse Oximetry 98 O2 Sat by Pulse Oximetry 98 O2 Sat by Pulse Oximetry 98 O2 Sat by Pulse Oximetry 98 O2 Sat by Pulse Oximetry 98 O2 Sat by Pulse Oximetry 98 O2 Sat by Pulse Oximetry 99 O2 Sat by Pulse Oximetry 98 O2 Sat by Pulse Oximetry 98 O2 Sat by Pulse Oximetry 99 O2 Sat by Pulse Oximetry 100 O2 Sat by Pulse Oximetry 97 O2 Sat by Pulse Oximetry 98 O2 Sat by Pulse Oximetry 99 O2 Sat by Pulse Oximetry 99 O2 Sat by Pulse Oximetry 99 O2 Sat by Pulse Oximetry 98 O2 Sat by Pulse Oximetry 99 O2 Sat by Pulse Oximetry 99 O2 Sat by Pulse Oximetry 100 O2 Sat by Pulse Oximetry 99 O2 Sat by Pulse Oximetry 99 O2 Sat by Pulse Oximetry 99 O2 Sat by Pulse Oximetry 99 O2 Sat by Pulse Oximetry 98 O2 Sat by Pulse Oximetry 98 O2 Sat by Pulse Oximetry 100 O2 Sat by Pulse Oximetry 99 O2 Sat by Pulse Oximetry 100 O2 Sat by Pulse Oximetry 100 O2 Sat by Pulse Oximetry 98 O2 Sat by Pulse Oximetry 99 O2 Sat by Pulse Oximetry 99 O2 Sat by Pulse Oximetry 99 O2 Sat by Pulse Oximetry 99 General Limitations: Physical Limitation (MINIMAL LIMITATIONS) General Appearance: In Distress (MODERATE DISTRESS) Head Head Exam: Normal Inspection, Atraumatic and Normocephalic Eyes Eye exam: Normal Appearance and PERRL ENT ENT Exam: Normal Exam, Normal Oropharynx and Normal External Ear Exam External Ear Exam: Normal External Inspection TM/Canal Exam: Bilateral: Normal Nose Exam: Normal Nose Exam Mouth Exam: Normal Inspection Neck Neck Exam: Normal Inspection, Full ROM and Trachea Midline Chest Chest Inspection: Normal Inspection and Symmetric Chest Wall Rise Respiratory Respiratory Exam: Normal Lung Sounds Bilat Respiratory Exam: Bilateral: Clear to Auscultation Cardiovascular Cardiovascular Exam: Regular Rate and Normal Rhythm Abdominal Exam Abdominal Exam: Normal Inspection and Normal Bowel Sounds Extremities Extremities Exam: Normal Inspection and Full ROM Back Back Exam: Normal Inspection and Full ROM Neurologic Neurological Exam: Alert, Oriented X3 and CN II-XII Intact Psychiatric Psychiatric Exam: Normal Affect MDM Differential Diagnosis Differential Diagnosis: AMI,CVA,HEADACHE ,PE,HYPERTENSIVE URGENCY COURSE Treatment Treatment: PATIENT REMAINED RELATIVELY STABLE DURING ER EVALUATION. WAS GIVN A TOTAL OF 4MG OF MSO4 IV FOR HEADACHE AND 4MG OD ZOFRAN IV . WAS GIVEN A TOTAL OF 20MG OF HYDRALAZINE IV FOR ELEVATED BLOOD PRESSUR. HAD 2 SETS OF CARDIAC ENZYMES THAT WERE NORMAL. PATIENT HAC CT OF BRAIN THAT WAS NEGATIVE FOR ACUTE BLEED AND CTA OF CHEST BECAUSE OF ELEVATED D-DIMER THAT WAS NEGATIVVE FOR PE. SPOKE TO DR FELDMAN ABOUT THIS PATIENT AND SHE STATED TO GET THE 2ND SET OF CARDIAC ENZYMES AND IF THEY ARE NOT ELEVATED WILL ACCEPT TO OBSERVATION. THE 2ND SET WERE NOT ELEVATED AND THE PATIENT WAS ADMITTED TO OBSERVATION. THE PATIENT WAS INFORMED OF THE INTENT TO ADMIT AND WAS AGREABLE TO THE OBSERVATION. ROR Labs Reviewed Laboratory Results Reviewed?: Yes 02/06/23 15:18 02/06/23 15:18 Laboratory: WBC 8.3 X10^3/uL (3.6-10.0) 02/06/23 15:18 RBC 4.17 X10^6/uL (3.5-5.4) 02/06/23 15:18 Hgb 10.3 g/dL (12.0-16.0) L 02/06/23 15:18 Hct 31.7 % (36.0-47.0) L 02/06/23 15:18 MCV 76.1 fL (80.0-100.0) L 02/06/23 15:18 MCH 24.7 pg (27.0-34.0) L 02/06/23 15:18 MCHC 32.4 g/dL (33.0-35.0) L 02/06/23 15:18 RDW 18.1 % (11.6-16.5) H 02/06/23 15:18 Plt Count 477 X10^3/uL (150.0-450.0) H 02/06/23 15:18 MPV 7.3 fL (7.4-11.0) L 02/06/23 15:18 Neut % (Auto) 68.1 % (42.0-75.0) 02/06/23 15:18 Lymph % (Auto) 25.7 % (21.0-51.0) 02/06/23 15:18 Arroyo % (Auto) 5.2 % (0.0-13.0) 02/06/23 15:18 Eos % (Auto) 0.5 % (0.9-2.9) L 02/06/23 15:18 Baso % (Auto) 0.5 % (0.2-1.0) 02/06/23 15:18 Neut # (Auto) 5.7 x10^3/uL (2.2-4.8) H 02/06/23 15:18 Lymph # (Auto) 2.1 X10^3/uL (1.3-2.9) 02/06/23 15:18 Arroyo # (Auto) 0.4 x10^3/uL (0.3-0.8) 02/06/23 15:18 Eos # (Auto) 0.0 x10^3/uL (0.0-0.2) 02/06/23 15:18 Baso # (Auto) 0.0 X10^3/uL (0.0-0.1) 02/06/23 15:18 Absolute Nucleated RBC 0.2 /100WBC 02/06/23 15:18 D-Dimer 1.91 ug/ml (0.0-0.57) H 02/06/23 15:18 Sodium 138 mmol/L (136-145) 02/06/23 15:18 Corrected Sodium 140 mmol/L (136-145) 02/06/23 15:18 Potassium 3.7 mmol/L (3.5-5.1) 02/06/23 15:18 Chloride 101 mmol/L (98-107) 02/06/23 15:18 Carbon Dioxide 30.9 mmol/L (21-32) 02/06/23 15:18 BUN 10 mg/dL (7-18) 02/06/23 15:18 Creatinine 0.88 mg/dL (0.55-1.02) 02/06/23 15:18 Est GFR (MDRD) Af Amer > 60 (>60) 02/06/23 15:18 Est GFR (MDRD) Non-Af > 60 (>60) 02/06/23 15:18 Glucose 183 mg/dL (65-99) H 02/06/23 15:18 POC Glucose (mg/dL) 174 mg/dL (65-99) H 02/06/23 15:40 Calcium 8.2 mg/dL (8.5-10.1) L 02/06/23 15:18 Corrected Calcium 9.3 mg/dL (8.5-10.1) 02/06/23 15:18 Total Bilirubin 0.20 mg/dL (0.2-1.0) 02/06/23 15:18 AST 21 Units/L (15-37) 02/06/23 15:18 ALT 37 Units/L (12-78) 02/06/23 15:18 Alkaline Phosphatase 417 Units/L (46-116) H 02/06/23 15:18 Creatine Kinase 107 Units/L (26-192) 02/06/23 20:15 Troponin I High Sens 10.5 ng/L (4.0-60.0) 02/06/23 20:15 B-Natriuretic Peptide 123 pg/mL (0-79) H 02/06/23 15:18 Total Protein 6.5 g/dL (6.4-8.2) 02/06/23 15:18 Albumin 2.6 g/dL (3.4-5.0) L 02/06/23 15:18 Globulin 3.9 g/dL (2.5-4.5) 02/06/23 15:18 Albumin/Globulin Ratio 0.7 Ratio (1.1-2.1) L 02/06/23 15:18 Specimen Type Clean catch urine 02/06/23 20:41 Urine Color Yellow (YELLOW) 02/06/23 20:41 Urine Appearance Clear (CLEAR) 02/06/23 20:41 Urine pH 8.0 (5.0 - 8.0) 02/06/23 20:41 Ur Specific Fleming 1.010 (1.000-1.030) 02/06/23 20:41 Urine Protein 1+ (NEGATIVE) 02/06/23 20:41 Urine Glucose (UA) Negative (NEGATIVE) 02/06/23 20:41 Urine Ketones Negative (NEGATIVE) 02/06/23 20:41 Urine Blood Negative (NEGATIVE) 02/06/23 20:41 Urine Nitrite Negative (NEGATIVE) 02/06/23 20:41 Urine Bilirubin Negative (NEGATIVE) 02/06/23 20:41 Urine Urobilinogen Normal (NORMAL) 02/06/23 20:41 Ur Leukocyte Esterase Negative (NEGATIVE) 02/06/23 20:41 Urine RBC 0-2 /HPF (0-3) 02/06/23 20:41 Urine WBC 0-2 /HPF (0-5) 02/06/23 20:41 Ur Squamous Epith Cells Rare /HPF (NEGATIVE) 02/06/23 20:41 Amorphous Sediment Trace /HPF (NEGATIVE) 02/06/23 20:41 Urine Bacteria Negative /HPF (NEGATIVE) 02/06/23 20:41 Urine Mucus Rare /HPF (NEGATIVE) 02/06/23 20:41 Ur Culture Indicated? No/not indicated 02/06/23 20:41 SARS-CoV-2 (PCR) Negative (NEGATIVE) 02/06/23 16:56 Influenza Type A (PCR) Negative (NEGATIVE) 02/06/23 16:56 Influenza Type B (PCR) Negative (NEGATIVE) 02/06/23 16:56 RSV (PCR) Negative (NEGATIVE) 02/06/23 16:56 Opioid Opioid Risk Tool Age (Sj box if 16-45): No History of Preadolescent Sexual Abuse: No Total: 0 Total Score Risk Category: Low Risk Copyright: Simone MENDOZA predicting aberrant behaviors Discharge Plan Diagnosis Discharge Problem: Angina pectoris, Headache, Hypertensive urgency, D-dimer, elevated Discharge Plan Patient Disposition: ADMITTED INPATIENT Condition: Stable Prescriptions: No Action bupropion HCl 150 mg tablet sustained-release 12 hr 150 mg PO BID atorvastatin 80 mg tablet 80 mg PO QPM amitriptyline 75 mg tablet 150 mg PO QPM trazodone 100 mg tablet 100 mg PO QPM olanzapine 15 mg tablet 15 mg PO QDAY oxybutynin chloride 5 mg tablet 5 mg PO BID duloxetine 60 mg capsule,delayed release(DR/EC) 60 mg PO BID potassium chloride 10 mEq tablet extended release 10 meq PO QDAY omeprazole 40 mg capsule,delayed release(DR/EC) 40 mg PO QDAY furosemide 20 mg tablet 20 mg PO QAM PRN (Reason: swelling) ergocalciferol (vitamin D2) 1,250 mcg (50,000 unit) capsule 1,250 mcg PO QWEEK valsartan 40 mg tablet 40 mg PO QDAY buprenorphine-naloxone 8-2 mg tablet, sublingual 1 tab sublingual QID Prolensa 0.07 % drops 1 drp OPHTHALMIC (EYE) QDAY Health Concerns: Post Hospitalization: new medications and changes needed to prevent readmission or further decline. Pt educated and given instructions on all concerns. Plan of Treatment: Continue with present treatment and follow up plan. Pt is to keep follow up appointment as instructed and take medications as ordered. Orders to Discharge Patient Discharge Orders: Transfer (Routine); Ordered 02/06/23 Ordered By: Leo Hernandez Follow ups/Referrals Follow ups/Referrals: David Beatty [REFERRING] - 3 days Instructions Stand Alone Forms: Post Hospital Follow Up Care
[2023-02-06] MEDS ORDERED: APRESOLINE INJ 20 MG VIAL ONE ×2 (15:14→20:25)
[2023-02-06 15:28] LABS: HEMOGLOBIN 10.3 g/dL (12.0-16.0); MEAN CORPUSCULAR HEMOGLOBIN 24.7 pg (27.0-34.0); MEAN CORPUSCULAR VOLUME 76.1 fL (80.0-100.0)
[2023-02-06 15:31] LABS: BASOPHILS % (AUTO) 0.5 % (0.2-1.0); EOSINOPHILS % (AUTO) 0.5 % (0.9-2.9); HEMATOCRIT 31.7 % (36.0-47.0); LYMPHOCYTES # (AUTO) 2.1 X10^3/uL (1.3-2.9); LYMPHOCYTES % (AUTO) 25.7 % (21.0-51.0); MEAN CORPUSCULAR HGB CONC 32.4 g/dL (33.0-35.0); MEAN PLATELET VOLUME 7.3 fL (7.4-11.0); MONOCYTES # (AUTO) 0.4 x10^3/uL (0.3-0.8); MONOCYTES % (AUTO) 5.2 % (0.0-13.0); NEUTROPHILS # (AUTO) 5.7 x10^3/uL (2.2-4.8); NEUTROPHILS % (AUTO) 68.1 % (42.0-75.0); PLATELET COUNT 477 X10^3/uL (150.0-450.0); RED BLOOD COUNT 4.17 X10^6/uL (3.5-5.4); RED CELL DISTRIBUTION WIDTH 18.1 % (11.6-16.5); WHITE BLOOD COUNT 8.3 X10^3/uL (3.6-10.0)
[2023-02-06 15:45] LABS: ALANINE AMINOTRANSFERASE 37 Units/L (12-78); ALBUMIN 2.6 g/dL (3.4-5.0); ALKALINE PHOSPHATASE 417 Units/L (46-116); ASPARTATE AMINO TRANSFERASE 21 Units/L (15-37); BLOOD UREA NITROGEN 10 mg/dL (7-18); CALCIUM 8.2 mg/dL (8.5-10.1); CARBON DIOXIDE 30.9 mmol/L (21-32); CHLORIDE 101 mmol/L (98-107); COR CA(FOR HYPOALB) 9.3 mg/dL (8.5-10.1); COR NA(FOR HYPERGLY) 140 mmol/L (136-145); CREATININE 0.88 mg/dL (0.55-1.02); GLUCOSE 183 mg/dL (65-99); POTASSIUM 3.7 mmol/L (3.5-5.1); SODIUM 138 mmol/L (136-145); TOTAL PROTEIN 6.5 g/dL (6.4-8.2); eGFR NON BLACK RACES > 60 (>60)
[2023-02-06] MEDS ORDERED: ZOFRAN INJ 4 MG VIAL IVP ONE (16:24)
[2023-02-06] MEDS ORDERED: MORPHINE SULFATE INJ 2 MG INJ IVP ONE ×2 (16:24→18:24)
[2023-02-06] MEDS ORDERED: ZOFRAN INJ 4 MG VIAL ONE (16:26)
[2023-02-06] MEDS ORDERED: MORPHINE SULFATE INJ 2 MG INJ ONE ×2 (16:26→18:34)
--- NOTE | 2023-02-06 16:33 | CT ---
History: Pt states for the past 2-3 days shes been weak, and having headaches with weakness more on the left side. Also chest has been hurting. elevated blood pressureExam :BRAIN W/O CONTechnique: Thin section axial ct images of the brain were obtained from the foramen magnum to the vertex without contrast. Sagittal and coronal reconstructions were also performed.Comparison: 06/21/2022Findings:The ventricles are within normal limits in size. No midline shift, mass effect or extra-axial fluid collections. No evidence of acute hemorrhage or acute macroinfarction. Mild cortical atrophy compatible with patient's age. Decreased attenuation in the periventricular and subcortical white matter consistent with microvascular ischemic white matter changes.The visualized paranasal sinuses and mastoids are unremarkable. The calvarium is intact.Impression:Mild cortical atrophy with microvascular ischemic white matter changes.No acute intracranial pathology.Electronically signed by: Chaz Loya (Feb 06, 2023 16:32:05)
[2023-02-06] MEDS ORDERED: OMNIPAQUE 350 mg/mL 100 mL BTL 100 ML ONE (16:55)
--- NOTE | 2023-02-06 17:29 | CT ---
HISTORYChest pain, elevated D DimerSTUDYCTA CHESTCOMPARISONNoneTECHNIQUEMultiple axial images of the chest were obtained from the thoracic inlet to the upper abdomen after the administration of IV contrast. 3D reconstructions utilizing axial MIPS imaging was performed and reviewed. Dose reduction techniques including Automated Exposure Control (AEC) and adjustment of mA and kV were utilized.FINDINGSThe mediastinum does not demonstrate significant pathological lymphadenopathy. There is no paracardial effusion observed. The thoracic aorta is normal in its contour without evidence for aneurysmal dilatation. The central pulmonary arterial system does not demonstrate central filling defects to suggest pulmonary emboli.Evaluation of the lung parenchyma fails to demonstrate focal consolidation or effusion . No pulmonary nodule or mass can be identified. The bony thorax is unremarkable in its appearance. Bilateral breast augmentation prostheses. The visualized portions of the upper abdomen are grossly unremarkable .IMPRESSIONUnremarkable CTA of the chest.Electronically signed by: Chaz Loya (Feb 06, 2023 17:27:49)
--- NOTE | 2023-02-06 20:32 | EKG ---
Test Reason : Chest Pain Blood Pressure : */* mmHG Vent. Rate : 80 BPM Atrial Rate : 80 BPM P-R Int : 142 ms QRS Dur : 84 ms QT Int : 412 ms P-R-T Axes : 84 47 70 degrees QTc Int : 475 ms Normal sinus rhythm Normal ECG When compared with ECG of 06-FEB-2023 15:04, (Unconfirmed) No significant change was found Confirmed by Dillan Franz ([id number]) on 02/08/2023 7:29:23 AM Referred By: Confirmed By: Dillan Franz
[2023-02-06 20:56] LABS: BILIRUBIN,URINE NEGATIVE (NEGATIVE); BLOOD/HEMOGLOBIN,URINE NEGATIVE (NEGATIVE); GLUCOSE, URINE NEGATIVE (NEGATIVE); KETONES,URINE NEGATIVE (NEGATIVE); LEUKOCYTE ESTERASE ,URINE NEGATIVE (NEGATIVE); NITRITES,URINE NEGATIVE (NEGATIVE); PROTEIN,URINE 1+ (NEGATIVE); UROBILINOGEN,URINE NORMAL (NORMAL)
[2023-02-06 21:02] LABS: APPEARANCE,URINE CLEAR (CLEAR); BACTERIA,URINE NEGATIVE /HPF (NEGATIVE); COLOR,URINE YELLOW (YELLOW); RBC,URINE 0-2 /HPF (0-3); SQUAMOUS EPITHELIAL CELL,UR RARE /HPF (NEGATIVE)
[2023-02-06] MEDS ORDERED: CATAPRES TAB 0.1 MG PO PRN (23:15)
[2023-02-06] MEDS ORDERED: LASIX PO PRN (23:54)
[2023-02-07] MEDS ORDERED: NORCO 5/325 MG TAB PO PRN (00:17)
[2023-02-07] MEDS ORDERED: ZOFRAN INJ 4 MG VIAL IVP PRN (00:23)
--- NOTE | 2023-02-07 03:09 | EKG ---
Test Reason : Chest pain Blood Pressure : */* mmHG Vent. Rate : 99 BPM Atrial Rate : 99 BPM P-R Int : 142 ms QRS Dur : 86 ms QT Int : 384 ms P-R-T Axes : 76 70 61 degrees QTc Int : 492 ms Normal sinus rhythm Possible Left atrial enlargement Prolonged QT Abnormal ECG When compared with ECG of 06-FEB-2023 20:29, (Unconfirmed) No significant change was found Confirmed by Dillan Franz ([id number]) on 02/08/2023 7:29:15 AM Referred By: Confirmed By: Dillan Franz
[2023-02-07 05:12] LABS: BASOPHILS % (AUTO) 0.2 % (0.2-1.0); EOSINOPHILS % (AUTO) 0.1 % (0.9-2.9); HEMATOCRIT 32.9 % (36.0-47.0); HEMOGLOBIN 10.6 g/dL (12.0-16.0); LYMPHOCYTES # (AUTO) 1.6 X10^3/uL (1.3-2.9); MEAN CORPUSCULAR HEMOGLOBIN 24.3 pg (27.0-34.0); MEAN CORPUSCULAR HGB CONC 32.2 g/dL (33.0-35.0); MEAN CORPUSCULAR VOLUME 75.4 fL (80.0-100.0); MEAN PLATELET VOLUME 7.5 fL (7.4-11.0); MONOCYTES # (AUTO) 0.4 x10^3/uL (0.3-0.8); MONOCYTES % (AUTO) 3.6 % (0.0-13.0); NEUTROPHILS # (AUTO) 9.4 x10^3/uL (2.2-4.8); NEUTROPHILS % (AUTO) 82.1 % (42.0-75.0); PLATELET COUNT 503 X10^3/uL (150.0-450.0); RED BLOOD COUNT 4.36 X10^6/uL (3.5-5.4); WHITE BLOOD COUNT 11.5 X10^3/uL (3.6-10.0)
[2023-02-07 05:41] LABS: ALANINE AMINOTRANSFERASE 32 Units/L (12-78); ALBUMIN 2.7 g/dL (3.4-5.0); ALKALINE PHOSPHATASE 397 Units/L (46-116); ASPARTATE AMINO TRANSFERASE 18 Units/L (15-37); BLOOD UREA NITROGEN 8 mg/dL (7-18); CALCIUM 8.5 mg/dL (8.5-10.1); CARBON DIOXIDE 29.3 mmol/L (21-32); CHLORIDE 102 mmol/L (98-107); COR CA(FOR HYPOALB) 9.5 mg/dL (8.5-10.1); COR NA(FOR HYPERGLY) 140 mmol/L (136-145); CREATINE KINASE 31 Units/L (26-192); CREATININE 0.69 mg/dL (0.55-1.02); GLUCOSE 157 mg/dL (65-99); MAGNESIUM 1.5 mg/dL (2.0-2.9); POTASSIUM 3.4 mmol/L (3.5-5.1); SODIUM 139 mmol/L (136-145); TOTAL PROTEIN 6.6 g/dL (6.4-8.2); eGFR NON BLACK RACES > 60 (>60)
[2023-02-07] MEDS ORDERED: CONSULT PHARMACY - POTASSIUM & MAGNESIUM XX SCH (06:00)
[2023-02-07] MEDS: PriLOSEC PO SCH (08:37)
[2023-02-07] MEDS: ZyPREXA TAB 5 MG PO SCH (08:37)
[2023-02-07] MEDS: WELLBUTRIN SR 150 MG (BID) PO SCH ×2 (08:37→20:21)
[2023-02-07] MEDS: MAG-OX TAB PO SCH ×2 (08:37→10:43)
[2023-02-07] MEDS: DITROPAN TAB 5 MG PO SCH ×2 (08:37→20:22)
[2023-02-07] MEDS: DIOVAN TAB 80 MG PO SCH (08:37)
[2023-02-07] MEDS ORDERED: MICRO K EXTEN CAP 10 MEQ PO SCH (09:00)
[2023-02-07] MEDS ORDERED: PROLENSA OPHTH 1 DOSE OP SCH (09:00)
[2023-02-07] MEDS: SUBOXONE TAB SL SCH ×4 (09:39→20:26)
[2023-02-07] MEDS: MAGNESIUM SULFATE 1 GRAM/100 mL PREMIX 1 G/100 ML BAG IV SCH ×2 (10:46→11:47)
[2023-02-07] MEDS ORDERED: K-DUR TAB 20 MEQ PO ONE (11:00)
--- NOTE | 2023-02-07 11:05 | DR.H&P ---
H&P History & Physical for Day of: H&P Date: 02/07/23 Chief Complaint Chief Complaint: headache, left sided chest pain Allergies Allergies Allergy/AdvReac Type Severity Reaction Status Date / Time No Known Allergies Allergy Verified 02/06/23 20:22 History of Present Illness History of Present Illness: Ms Williamson is a 68y/o female with a PMH of HTN, carotid stenosis, CVA and DM presented with headache and left sided chest pain and neck pain. She states she has been feeling sick for the past few days with a headache and chest pain.She also reports having increased leg swelling. She has not been checking her BP. She denies prev hx of CAD. She had a CVA last year with residual left arm weakness. She states she felt like the left weakness was worse yesterday. She also has chronic back pain. Her PCP has referred her to cardiology and she has an appointment coming up. She reports having stress test in the past. She does have lasix prn but states she has been taking it more lately. In the ED, BP was noted to be in the 200s. She was given IV hydralazine and morphine. Her cardiac enzymes and EKG were negative. CT-head was negative. D-dimer was elevated to CTA chest was done which did not show PE. Patient was admitted for further evaluation and observation. She is feeling better this morning. She states headache and chest pain have subsided. She still has some generalized weakness. Labs/imaging reviewed - Mg 1.5 K:3.4 Trop x 3: neg D-dimer 1.91 - CT-head (-) - CTA chest (-) Plan: admit to telemetry, resume home medications. Check BNP. Replace K and Mag. Will change lasix to 20 mg daily. Adjust BP medications to keep BP controlled. Discussed with patient to monitor BP at home. Keep f/u with cardiology. Monitor BP. PT/OT as tolerated. Monitor AM labs/imaging. Past Medical History Past Medical History: CVA, Diabetes and Hypertension Additional Medical History: MOOD DISORDER, OPIOID DEPNENCENCE Past Surgical History Surgical History: Appendectomy, Cholecystectomy and Hysterectomy Family History Family Medical History: Diabetes Mellitus and Hypertension Social History Does patient currently use any type of tobacco product: Yes Have you used tobacco products in the last 12 months: Yes Type of Tobacco Use: Cigarettes How many years tobacco product used: 20 Does any household member use tobacco: No Alcohol Use: None Drug Use: None Medications Home Medications: Home Medications Medication Instructions Recorded Confirmed Type atorvastatin 80 mg tablet 80 mg PO QPM 06/21/22 02/06/23 History bupropion HCl 150 mg tablet,12 hr 150 mg PO BID 06/21/22 02/06/23 History sustained-release duloxetine 60 mg capsule,delayed 60 mg PO BID 06/21/22 02/06/23 History release olanzapine 15 mg tablet 15 mg PO QDAY 06/21/22 02/06/23 History oxybutynin chloride 5 mg tablet 5 mg PO BID 06/21/22 02/06/23 History trazodone 100 mg tablet 100 mg PO QPM insomnia 06/21/22 02/06/23 History bromfenac 0.07 % eye drops 1 drp ophthalmic (eye) QDAY 02/06/23 02/06/23 History (Prolensa) buprenorphine 8 mg-naloxone 2 mg 1 tab sublingual QID 02/06/23 02/06/23 History sublingual tablet ergocalciferol (vitamin D2) 1,250 1,250 mcg PO QWEEK 02/06/23 02/06/23 History mcg (50,000 unit) capsule furosemide 20 mg tablet 20 mg PO QAM PRN swelling 02/06/23 02/06/23 History omeprazole 40 mg capsule,delayed 40 mg PO QDAY 02/06/23 02/06/23 History release potassium chloride 10 mEq 10 meq PO QDAY 02/06/23 02/06/23 History tablet,extended release valsartan 40 mg tablet 40 mg PO QDAY 02/06/23 02/06/23 History Labs 02/07/23 04:45 02/07/23 04:45 Labs: Laboratory WBC 11.5 X10^3/uL (3.6-10.0) H 02/07/23 04:45 RBC 4.36 X10^6/uL (3.5-5.4) 02/07/23 04:45 Hgb 10.6 g/dL (12.0-16.0) L 02/07/23 04:45 Hct 32.9 % (36.0-47.0) L 02/07/23 04:45 MCV 75.4 fL (80.0-100.0) L 02/07/23 04:45 MCH 24.3 pg (27.0-34.0) L 02/07/23 04:45 MCHC 32.2 g/dL (33.0-35.0) L 02/07/23 04:45 RDW 18.0 % (11.6-16.5) H 02/07/23 04:45 Plt Count 503 X10^3/uL (150.0-450.0) H 02/07/23 04:45 MPV 7.5 fL (7.4-11.0) 02/07/23 04:45 Neut % (Auto) 82.1 % (42.0-75.0) H 02/07/23 04:45 Lymph % (Auto) 14.0 % (21.0-51.0) L 02/07/23 04:45 [place] % (Auto) 3.6 % (0.0-13.0) 02/07/23 04:45 Eos % (Auto) 0.1 % (0.9-2.9) L 02/07/23 04:45 Baso % (Auto) 0.2 % (0.2-1.0) 02/07/23 04:45 Neut # (Auto) 9.4 x10^3/uL (2.2-4.8) H 02/07/23 04:45 Lymph # (Auto) 1.6 X10^3/uL (1.3-2.9) 02/07/23 04:45 [place] # (Auto) 0.4 x10^3/uL (0.3-0.8) 02/07/23 04:45 Eos # (Auto) 0.0 x10^3/uL (0.0-0.2) 02/07/23 04:45 Baso # (Auto) 0.0 X10^3/uL (0.0-0.1) 02/07/23 04:45 Absolute Nucleated RBC 0.0 /100WBC 02/07/23 04:45 D-Dimer 1.91 ug/ml (0.0-0.57) H 02/06/23 15:18 Sodium 139 mmol/L (136-145) 02/07/23 04:45 Corrected Sodium 140 mmol/L (136-145) 02/07/23 04:45 Potassium 3.4 mmol/L (3.5-5.1) L 02/07/23 04:45 Chloride 102 mmol/L (98-107) 02/07/23 04:45 Carbon Dioxide 29.3 mmol/L (21-32) 02/07/23 04:45 BUN 8 mg/dL (7-18) 02/07/23 04:45 Creatinine 0.69 mg/dL (0.55-1.02) 02/07/23 04:45 Est GFR (MDRD) Af Amer > 60 (>60) 02/07/23 04:45 Est GFR (MDRD) Non-Af > 60 (>60) 02/07/23 04:45 Glucose 157 mg/dL (65-99) H 02/07/23 04:45 POC Glucose (mg/dL) 155 mg/dL (65-99) H 02/07/23 05:28 Calcium 8.5 mg/dL (8.5-10.1) 02/07/23 04:45 Corrected Calcium 9.5 mg/dL (8.5-10.1) 02/07/23 04:45 Magnesium 1.5 mg/dL (2.0-2.9) L 02/07/23 04:45 Total Bilirubin 0.30 mg/dL (0.2-1.0) 02/07/23 04:45 AST 18 Units/L (15-37) 02/07/23 04:45 ALT 32 Units/L (12-78) 02/07/23 04:45 Alkaline Phosphatase 397 Units/L (46-116) H 02/07/23 04:45 Creatine Kinase 31 Units/L (26-192) 02/07/23 04:45 Troponin I High Sens 19.3 ng/L (4.0-60.0) 02/07/23 04:45 B-Natriuretic Peptide 123 pg/mL (0-79) H 02/06/23 15:18 Total Protein 6.6 g/dL (6.4-8.2) 02/07/23 04:45 Albumin 2.7 g/dL (3.4-5.0) L 02/07/23 04:45 Globulin 3.9 g/dL (2.5-4.5) 02/07/23 04:45 Albumin/Globulin Ratio 0.7 Ratio (1.1-2.1) L 02/07/23 04:45 Specimen Type Clean catch urine 02/06/23 20:41 Urine Color Yellow (YELLOW) 02/06/23 20:41 Urine Appearance Clear (CLEAR) 02/06/23 20:41 Urine pH 8.0 (5.0 - 8.0) 02/06/23 20:41 Ur Specific [place] 1.010 (1.000-1.030) 02/06/23 20:41 Urine Protein 1+ (NEGATIVE) 02/06/23 20:41 Urine Glucose (UA) Negative (NEGATIVE) 02/06/23 20:41 Urine Ketones Negative (NEGATIVE) 02/06/23 20:41 Urine Blood Negative (NEGATIVE) 02/06/23 20:41 Urine Nitrite Negative (NEGATIVE) 02/06/23 20:41 Urine Bilirubin Negative (NEGATIVE) 02/06/23 20:41 Urine Urobilinogen Normal (NORMAL) 02/06/23 20:41 Ur Leukocyte Esterase Negative (NEGATIVE) 02/06/23 20:41 Urine RBC 0-2 /HPF (0-3) 02/06/23 20:41 Urine WBC 0-2 /HPF (0-5) 02/06/23 20:41 Ur Squamous Epith Cells Rare /HPF (NEGATIVE) 02/06/23 20:41 Amorphous Sediment Trace /HPF (NEGATIVE) 02/06/23 20:41 Urine Bacteria Negative /HPF (NEGATIVE) 02/06/23 20:41 Urine Mucus Rare /HPF (NEGATIVE) 02/06/23 20:41 Ur Culture Indicated? No/not indicated 02/06/23 20:41 SARS-CoV-2 (PCR) Negative (NEGATIVE) 02/06/23 16:56 Influenza Type A (PCR) Negative (NEGATIVE) 02/06/23 16:56 Influenza Type B (PCR) Negative (NEGATIVE) 02/06/23 16:56 RSV (PCR) Negative (NEGATIVE) 02/06/23 16:56 Review of Systems Constitutional: Weakness Eyes: No Symptoms Reported Respiratory: No Symptoms Reported Cardiovascular: Chest Pain and Edema Gastrointestinal: No Symptoms Reported Musculoskeletal: Back Pain Skin: No Symptoms Reported Neurological: Weakness Physical Exam Vital Signs: Vital Signs Temperature 97.6 F Temperature 98.1 F Temperature 98.1 F Pulse Rate [Left] 92 Pulse Rate [Left] 94 Pulse Rate [Left] 94 Respiratory Rate 18 Respiratory Rate 20 Respiratory Rate 20 Blood Pressure [Right Arm] 177/77 Blood Pressure [Right Arm] 163/73 Blood Pressure [Right Arm] 163/73 O2 Sat by Pulse Oximetry 94 O2 Sat by Pulse Oximetry 96 O2 Sat by Pulse Oximetry 96 Oriented: Normal Eyes: Normal Nose: Normal Respiratory: Clear Throughout Cardiovascular: Normal and Edema Auscultation: Bowel Sounds: Normal Palpation: Normal Tenderness: Normal Skin: Decreased [place] Musculoskeletal: Back:Paraspinous Psychiatric: Normal Mood Description: Calm Affect: Normal Speech Pattern: Clear and Appropriate Assessment/Plan (1) Chest pain, rule out acute myocardial infarction: Status: Acute (2) Hypertensive urgency: Status: Acute (3) Generalized weakness: Status: Acute (4) Hypokalemia: Status: Acute (5) Hypomagnesemia: Status: Acute (6) Anxiety: Status: Chronic (7) History of CVA (cerebrovascular accident): Status: Chronic Review H&P Reviewed: Yes Patient was examined?: Yes
[2023-02-07] MEDS: MICRO K EXTEN CAP 10 MEQ PO SCH (11:08)
[2023-02-07] MEDS: LASIX PO SCH (11:09)
[2023-02-07] MEDS: NovoLIN R (or HumuLIN R) SC PRN (17:39)
[2023-02-07] MEDS: CATAPRES TAB 0.1 MG PO SCH (20:21)
[2023-02-07] MEDS ORDERED: ELAVIL PO SCH (21:00)
[2023-02-07] MEDS ORDERED: LIPITOR TAB 80 MG PO SCH (21:00)
[2023-02-07] MEDS ORDERED: DESYREL PO SCH (21:00)
[2023-02-08 04:52] LABS: BASOPHILS % (AUTO) 0.3 % (0.2-1.0); EOSINOPHILS % (AUTO) 0.3 % (0.9-2.9); HEMATOCRIT 27.7 % (36.0-47.0); HEMOGLOBIN 9.2 g/dL (12.0-16.0); LYMPHOCYTES # (AUTO) 2.2 X10^3/uL (1.3-2.9); LYMPHOCYTES % (AUTO) 26.5 % (21.0-51.0); MEAN CORPUSCULAR HEMOGLOBIN 25.2 pg (27.0-34.0); MEAN CORPUSCULAR HGB CONC 33.3 g/dL (33.0-35.0); MEAN CORPUSCULAR VOLUME 75.6 fL (80.0-100.0); MEAN PLATELET VOLUME 7.5 fL (7.4-11.0); MONOCYTES # (AUTO) 0.6 x10^3/uL (0.3-0.8); NEUTROPHILS # (AUTO) 5.5 x10^3/uL (2.2-4.8); NEUTROPHILS % (AUTO) 65.9 % (42.0-75.0); PLATELET COUNT 455 X10^3/uL (150.0-450.0); RED BLOOD COUNT 3.66 X10^6/uL (3.5-5.4); RED CELL DISTRIBUTION WIDTH 18.1 % (11.6-16.5); WHITE BLOOD COUNT 8.3 X10^3/uL (3.6-10.0)
[2023-02-08 05:22] LABS: ALANINE AMINOTRANSFERASE 29 Units/L (12-78); ALBUMIN 2.3 g/dL (3.4-5.0); ALKALINE PHOSPHATASE 406 Units/L (46-116); ASPARTATE AMINO TRANSFERASE 21 Units/L (15-37); BLOOD UREA NITROGEN 20 mg/dL (7-18); CARBON DIOXIDE 31.1 mmol/L (21-32); CHLORIDE 103 mmol/L (98-107); COR CA(FOR HYPOALB) 9.4 mg/dL (8.5-10.1); COR NA(FOR HYPERGLY) 141 mmol/L (136-145); CREATININE 0.88 mg/dL (0.55-1.02); GLUCOSE 246 mg/dL (65-99); MAGNESIUM 1.9 mg/dL (2.0-2.9); POTASSIUM 4.2 mmol/L (3.5-5.1); SODIUM 137 mmol/L (136-145); TOTAL PROTEIN 5.6 g/dL (6.4-8.2); eGFR NON BLACK RACES > 60 (>60)
[2023-02-08] MEDS: NovoLIN R (or HumuLIN R) SC PRN (05:49)
[2023-02-08] MEDS: ZyPREXA TAB 5 MG PO SCH (08:24)
[2023-02-08] MEDS: MICRO K EXTEN CAP 10 MEQ PO SCH (08:25)
[2023-02-08] MEDS: WELLBUTRIN SR 150 MG (BID) PO SCH (08:25)
[2023-02-08] MEDS: CATAPRES TAB 0.1 MG PO SCH (08:26)
[2023-02-08] MEDS: DIOVAN TAB 80 MG PO SCH (08:26)
[2023-02-08] MEDS: DITROPAN TAB 5 MG PO SCH (08:26)
[2023-02-08] MEDS: LASIX PO SCH (08:27)
[2023-02-08] MEDS: SUBOXONE TAB SL SCH ×2 (08:44→13:13)
[2023-02-08] MEDS: PriLOSEC PO SCH (08:49)
[2023-02-08] MEDS ORDERED: MAG-OX TAB PO SCH (09:00)
[2023-02-08] MEDS ORDERED: TYLENOL 500 MG TAB EXTRA STRENGTH PO PRN (10:36)
[2023-02-08 12:06] VITALS: BP 95/47; PULSE 70; TEMP 97.8; O2SAT 100
[2023-02-08 12:22] VITALS: RESP 20
[2023-02-12] MEDS ORDERED: PROLENSA OPHTH 1 DOSE OP SCH (09:00)
== END 2023-02-08 15:20 | disposition home or self-care (01) ==
LOC: MED/SURG 14:40 → ER 14:40 → MED/SURG 23:25
PROVIDERS: ADMIT Internal Medicine; ATTEND Internal Medicine
DX: R07.89 Other chest pain; I10 Essential (primary) hypertension; E87.6 Hypokalemia; Z86.73 Personal history of transient ischemic attack (TIA), and cerebral infarction without residual deficits; R53.1 Weakness; E83.42 Hypomagnesemia; R51.9 Headache, unspecified; R26.89 Other abnormalities of gait and mobility; I16.0 Hypertensive urgency; F41.8 Other specified anxiety disorders